=== PATIENT | female | born 1955 | race Caucasian/White ===

== ENCOUNTER 2025-01-08 04:23 | Inpatient (IN) | payer MEDICARE, BC ==
[~2025-01-08] VITALS: Ht 157.5 cm; Wt 72.6 kg
[2025-01-08 06:15] VITALS: BP 157/83; TEMP 97.4; O2SAT 96
[2025-01-08] MEDS ORDERED: BREX0.5T PO (06:15)
[2025-01-08] MEDS ORDERED: AMLO5TAB4 PO (06:16)
[2025-01-08] MEDS ORDERED: GABA300C PO (06:17)
[2025-01-08] MEDS ORDERED: BISA-79 PO (06:17)
[2025-01-08] MEDS ORDERED: IBUP-1953 PO (06:19)
[2025-01-08] MEDS ORDERED: NALT50TA PO (06:20)
[2025-01-08] MEDS ORDERED: NEBI5TAB8 PO (06:20)
[2025-01-08] MEDS ORDERED: SPIR25TA6 PO (06:21)
[2025-01-08] MEDS ORDERED: POLY17PO4 PO (06:21)
[2025-01-08] MEDS ORDERED: MAGNESIUM HYDROXIDE 30 ML UDC PO PRN (06:30)
[2025-01-08] MEDS ORDERED: MAG HYDROX/AL HYDROX/SIMETH 30 ML UDC PO PRN (06:30)
[2025-01-08] MEDS ORDERED: ACETAMINOPHEN 325 MG TABLET PO PRN (06:30)
[2025-01-08] MEDS ORDERED: ZOLPIDEM TARTRATE 5 MG TABLET PO PRN ×2 (06:30)
[2025-01-08 08:00] VITALS: BP 141/86; TEMP 97.6; O2SAT 97
[2025-01-08] MEDS: AMLODIPINE BESYLATE 5 MG TABLET PO SCH (09:27)
[2025-01-08] MEDS: GABAPENTIN 300 MG CAPSULE PO SCH (09:27)
[2025-01-08] MEDS: POLYETHYLENE GLYCOL 3350 17 GM POWD.PACK PO SCH (09:27)
[2025-01-08] MEDS: IBUPROFEN 400 MG TABLET PO SCH (09:27)
[2025-01-08] MEDS: BLOOD SUGAR DIAGNOSTIC 1 EACH STRIP IN ONE (09:28)
[2025-01-08] MEDS: METOPROLOL TARTRATE 25 MG TABLET PO SCH (09:28)
[2025-01-08] MEDS: VENLAFAXINE XR 75 MG CAP.SR.24H PO SCH (14:30)
[2025-01-08 16:00] VITALS: BP 160/91; TEMP 97.8; O2SAT 96
[2025-01-08] MEDS: GABAPENTIN 100 MG CAPSULE PO SCH (17:00)
[2025-01-08] MEDS: SPIRONOLACTONE 25 MG TABLET PO SCH (17:06)
[2025-01-08 20:00] VITALS: BP 143/78; TEMP 98; O2SAT 99
[2025-01-08] MEDS: QUETIAPINE FUMARATE 25 MG TABLET PO SCH (21:19)
[2025-01-08] MEDS: BISACODYL (5 MG) 5 MG TABLET.DR PO SCH (21:20)
[2025-01-08 23:07] VITALS: BP 133/75; TEMP 98.2; O2SAT 98
[2025-01-09 07:29] LABS: PLATELET COUNT (AUTO) 192 K/uL (150-450); RED BLOOD CELL COUNT(AUTO) 4.69 MIL/uL (4.0-5.2); RED CELL DISTRIBUTION WIDTH 13.2 % (11.5-15.0); WHITE BLOOD COUNT (AUTO) 8.8 K/uL (4.3-11.0)
[2025-01-09 08:00] VITALS: BP 129/91; TEMP 98.7; O2SAT 97
[2025-01-09 08:13] LABS: CALCIUM, SERUM 9.2 mg/dL (8.5-10.1); CREATININE 0.8 mg/dL (0.6-1.3); SODIUM SERUM 138.0 mmol/L (136-145); UREA NITROGEN, BLOOD 16.0 mg/dL (7-18)
[2025-01-09 08:18] LABS: LDL 142.0 mg/dL (0-99)
[2025-01-09] MEDS: POTASSIUM CHLORIDE 20 MEQ TAB.PRT.SR PO ONE (10:57)
[2025-01-09 16:00] VITALS: BP 114/65; TEMP 98.7; O2SAT 96
[2025-01-09 20:17] VITALS: BP 102/83; TEMP 98; O2SAT 97
[2025-01-10 08:00] VITALS: BP 145/74; TEMP 97.8; O2SAT 95
[2025-01-10 16:00] VITALS: BP 119/81; TEMP 97.7; O2SAT 96
[2025-01-10 20:36] VITALS: BP 147/82; TEMP 97.8; O2SAT 96
[2025-01-11 08:00] VITALS: BP 141/85; TEMP 98.7; O2SAT 96
[2025-01-11 16:00] VITALS: BP 145/92; TEMP 98.8; O2SAT 98
[2025-01-11 19:55] VITALS: BP 116/73; TEMP 97.3; O2SAT 97
[2025-01-12 08:00] VITALS: BP 144/86; TEMP 98.7; O2SAT 96
[2025-01-12] MEDS: VENLAFAXINE XR 37.5 MG CAP.SR.24H PO SCH (08:32)
[2025-01-12 16:00] VITALS: BP 139/83; TEMP 98.8; O2SAT 95
[2025-01-12 20:07] VITALS: BP 129/72; TEMP 98.6; O2SAT 97
[2025-01-13 08:00] VITALS: BP 140/86; TEMP 98.6; O2SAT 95
[2025-01-13 16:00] VITALS: BP 138/80; TEMP 98.4; O2SAT 98
[2025-01-13 19:57] VITALS: BP 112/68; TEMP 98.4; O2SAT 96
[2025-01-13] MEDS: QUETIAPINE FUMARATE 25 MG TABLET PO SCH (21:17)
[2025-01-14 08:00] VITALS: BP 132/73; TEMP 98.2; O2SAT 95
[2025-01-14 16:00] VITALS: BP 107/65; TEMP 98.4; O2SAT 98
[2025-01-14 19:42] VITALS: BP 112/82; TEMP 98.2; O2SAT 98
[2025-01-15 08:00] VITALS: BP 146/83; TEMP 97.8; O2SAT 95
[2025-01-15 16:00] VITALS: BP 146/79; TEMP 98.4; O2SAT 94
[2025-01-15 19:54] LABS: APPEARANCE,URINE CLOUDY (CLEAR); BLOOD, URINE 2+ Ery/uL (NEGATIVE); LEUKOCYTE ESTERASE ,URINE 3+ (NEGATIVE); NITRITE, URINE POSITIVE (NEGATIVE); UGLUCOSE NEGATIVE (NEGATIVE)
[2025-01-15 20:40] LABS: ADD URINE CULTURE YES; SQUAMOUS EPITHELIAL CELL,UR 0-2 /HPF (None Seen)
[2025-01-15 21:04] VITALS: BP 136/85; TEMP 98.4; O2SAT 96
[2025-01-15] MEDS: NITROFURANTOIN/MONOHYDRATE MACROCRYSTALS 100 MG CAPSULE PO SCH (21:31)
[2025-01-16 08:00] VITALS: BP 144/84; TEMP 97.9; O2SAT 94
[2025-01-16 16:00] VITALS: BP 134/81; TEMP 98.2; O2SAT 95
[2025-01-16 20:18] VITALS: BP 125/80; TEMP 98.2; O2SAT 97
[2025-01-17 08:00] VITALS: BP 155/90; TEMP 97.8; O2SAT 96
[2025-01-17] MEDS: CEFTRIAXONE 1 G VIAL IM SCH (16:00)
[2025-01-17 16:14] VITALS: BP 149/95; TEMP 97.9; O2SAT 97
[2025-01-17 20:56] VITALS: BP 158/87; TEMP 97.9; O2SAT 96
[2025-01-18 08:00] VITALS: BP 132/98; TEMP 97.9; O2SAT 96
[2025-01-18 11:56] LABS: PLATELET COUNT (AUTO) 297 K/uL (150-450); RED BLOOD CELL COUNT(AUTO) 4.86 MIL/uL (4.0-5.2); RED CELL DISTRIBUTION WIDTH 13.3 % (11.5-15.0); WHITE BLOOD COUNT (AUTO) 6.0 K/uL (4.3-11.0)
[2025-01-18 12:01] LABS: CALCIUM, SERUM 9.5 mg/dL (8.5-10.1); CREATININE 1.0 mg/dL (0.6-1.3); PHOSPHORUS 2.7 mg/dL (2.5-4.9); SODIUM SERUM 130.0 mmol/L (136-145); UREA NITROGEN, BLOOD 16.0 mg/dL (7-18)
[2025-01-18 16:00] VITALS: BP 125/63; TEMP 98.8; O2SAT 95
[2025-01-18] MEDS: PHENAZOPYRIDINE HCL 200 MG TABLET PO PRN (16:36)
[2025-01-18 19:49] VITALS: BP 135/75; TEMP 98.6; O2SAT 96
[2025-01-18] MEDS: AMLODIPINE BESYLATE 5 MG TABLET PO SCH (21:08)
[2025-01-19 08:33] VITALS: BP 133/83; TEMP 97.7; O2SAT 96
[2025-01-19 16:12] VITALS: BP 117/58; TEMP 97.5; O2SAT 97
[2025-01-19] MEDS: VENLAFAXINE XR 37.5 MG CAP.SR.24H PO SCH (16:27)
[2025-01-19 19:49] VITALS: BP 140/81; TEMP 97.6; O2SAT 97
[2025-01-20 08:00] VITALS: BP 139/90; TEMP 98.1; O2SAT 98
[2025-01-20 08:52] LABS: CALCIUM, SERUM 9.4 mg/dL (8.5-10.1); SODIUM SERUM 137 mmol/L (136-145)
[2025-01-20 08:53] LABS: CREATININE 0.9 mg/dL (0.6-1.3); PHOSPHORUS 3.7 mg/dL (2.5-4.9); UREA NITROGEN, BLOOD 15 mg/dL (7-18)
[2025-01-20 15:54] VITALS: BP 123/75; TEMP 98.1; O2SAT 97
[2025-01-20 19:45] VITALS: BP 155/87; TEMP 98; O2SAT 98
[2025-01-21 08:00] VITALS: BP 125/92; TEMP 97.9; O2SAT 98
[2025-01-21 14:30] VITALS: BP 160/105
[2025-01-21] MEDS: AMLODIPINE BESYLATE 2.5 MG TABLET PO ONE (15:08)
[2025-01-21 16:00] VITALS: BP 167/89; TEMP 97.5; O2SAT 97
[2025-01-21 17:11] VITALS: BP_SYST 172; BP_DIAS 101; BP_DIAS 104
[2025-01-21 18:08] VITALS: BP 151/90
== END 2025-01-21 19:33 | DRG 885 ==
LOC: ER 04:28 → GPS 05:14
PROVIDERS: ADMIT Psychiatry & Neurology Psychiatry; ATTEND Internal Medicine
DX: F39 Unspecified mood [affective] disorder (principal); E87.1 Hypo-osmolality and hyponatremia; N39.0 Urinary tract infection, site not specified; F32.3 Major depressive disorder, single episode, severe with psychotic features; F29 Unspecified psychosis not due to a substance or known physiological condition; Z73.6 Limitation of activities due to disability; E87.6 Hypokalemia; I10 Essential (primary) hypertension; M62.81 Muscle weakness (generalized); F41.9 Anxiety disorder, unspecified; B96.20 Unspecified Escherichia coli [E. coli] as the cause of diseases classified elsewhere; F17.210 Nicotine dependence, cigarettes, uncomplicated
CPT/HCPCS: 36415; 80048-TC; 80061-TC; 81001; 83735-TC; 84100-TC; 84443-TC; 84550-TC; 85025-TC; 87081-TC; 87086-TC; 87186-TC; 97110-TC; 97116-TC; 97530-TC; J0696